=== PATIENT | female | born 1955 | race Asian ===

== ENCOUNTER 2019-07-04 09:51 | Emergency (ER) | payer OTHER ==
[~2019-07-04] VITALS: Ht 157.5 cm; Wt 93.4 kg
[2019-07-04 10:45] LABS: PLATELET COUNT 240 K/uL (152-353)
[2019-07-04 10:56] LABS: POTASSIUM 3.7 mmol/L (3.6-5.2)
[2019-07-04 13:14] VITALS: BP 111/71; TEMP 97.7
== END 2019-07-04 13:15 | disposition home or self-care (01) ==
LOC: ED 09:51
PROVIDERS: Family Medicine
DX: S39.012A Strain of muscle, fascia and tendon of lower back, initial encounter (principal); I10 Essential (primary) hypertension; W01.0XXA Fall on same level from slipping, tripping and stumbling without subsequent striking against object, initial encounter; Y92.89 Other specified places as the place of occurrence of the external cause
CPT/HCPCS: 80053; 81000; 85027; 99283